=== PATIENT | female | born 1940 | race Caucasian/White ===

== ENCOUNTER 2018-01-22 17:16 | Inpatient (IN) | payer MEDICARE, MEDICAID ==
[~2018-01-22] VITALS: Ht 157.5 cm; Wt 61.2 kg
--- NOTE | 2018-01-22 17:30 | NUR ---
Pt.was seen by Joey Maldonado, family at bedside.
[2018-01-22] MEDS ORDERED: MEMA1CAP3 PO (17:32)
[2018-01-22] MEDS ORDERED: VENL150T PO (17:32)
[2018-01-22] MEDS ORDERED: CLON0.5T12 PO (17:33)
[2018-01-22] MEDS ORDERED: OLAN2.5T3 PO (17:33)
[2018-01-22] MEDS ORDERED: ALEN70TA45 PO (17:34)
[2018-01-22] MEDS ORDERED: LOSA50TA21 PO (17:34)
[2018-01-22] MEDS ORDERED: ATOR20TA PO (17:34)
[2018-01-22] MEDS ORDERED: CELE200C PO (17:34)
[2018-01-22] MEDS ORDERED: TRAM50TA2 PO (17:35)
[2018-01-22] MEDS ORDERED: ESZO3TAB27 PO (17:35)
[2018-01-22] MEDS ORDERED: SITA1TAB2 PO (17:36)
[2018-01-22] MEDS ORDERED: HYDR30CR77 RC (17:36)
[2018-01-22 17:40] LABS: BASOPHILS # (AUTO) 0.1 K/uL (0.0-8.0); BASOPHILS % (AUTO) 1.3 % (0.0-2.0); EOSINOPHILS # (AUTO) 0.1 K/uL (0.0-0.7); EOSINOPHILS % (AUTO) 1.4 % (0.0-7.0); HEMATOCRIT 36.8 % (31.2-41.9); HEMOGLOBIN 12.6 g/dL (10.9-14.3); LYMPHOCYTES # (AUTO) 1.4 K/uL (20.0-40.0); LYMPHOCYTES % (AUTO) 20.2 % (20.5-51.5); MEAN CORPUSCULAR HEMOGLOBIN 31.9 uug (24.7-32.8); MEAN CORPUSCULAR HGB CONC 34 g/dL (32.3-35.6); MEAN CORPUSCULAR VOLUME 93.5 fL (75.5-95.3); MONOCYTES # (AUTO) 0.5 K/uL (2.0-10.0); MONOCYTES % (AUTO) 7.1 % (0.0-11.0); NEUTROPHILS # (AUTO) 4.9 K/uL (1.8-8.9); PLATELET COUNT (AUTO) 232 K/uL (179-408); RED BLOOD CELL COUNT(AUTO) 3.94 MIL/uL (3.63-4.92)
[2018-01-22 17:48] LABS: CARBON DIOXIDE 30 mmol/L (21-32); CHLORIDE 105 mmol/L (98-107); CREATININE 1.1 mg/dL (0.6-1.3); GLUCOSE 137 mg/dL (74-106); POTASSIUM 4.1 mmol/L (3.5-5.1); UREA NITROGEN, BLOOD 24 mg/dL (7-18)
[2018-01-22 17:53] LABS: ALANINE AMINOTRANSFERASE 23 U/L (14-59); ALKALINE PHOSPHATASE 42 U/L (50-136); ASPARTATE AMINOTRANSFERASE 11 U/L (15-37); BILIRUBIN,DIRECT 0.1 mg/dL (0.0-0.2); BILIRUBIN,TOTAL 0.3 mg/dL (0.2-1.0); TOTAL PROTEIN, SERUM 6.8 g/dL (6.4-8.2)
[2018-01-22 17:55] LABS: ETHANOL < 3 MG/DL (0-0)
[2018-01-22 18:05] LABS: THYROID STIMULATING HORMONE 0.928 mIU/mL (0.358-3.740)
--- NOTE | 2018-01-22 18:52 | NUR ---
Pt. watching TV, doughter at bedside, no s/s of distress or pain noted.pt.been watching [employer]
[2018-01-22 19:09] LABS: *BILIRUBIN,URIN NEGATIVE (NEGATIVE); *BLOOD, URINE 1+ (NEGATIVE); *CLARITY,URINE CLEAR (CLEAR); *COLOR,URINE YELLOW (YELLOW); *KETONES,URINE NEGATIVE (NEGATIVE); *PROTEIN,URINE NEGATIVE (NEGATIVE); *UROBILINOGEN,URINE 0.2 E.U./dl (NORMAL); LEUKOCYTE ESTERASE ,URINE NEGATIVE (NEGATIVE); NITRITE, URINE NEGATIVE (NEGATIVE); PH,URINE 5.5 (5.0-8.0); UGLUCOSE NEGATIVE (NEGATIVE)
[2018-01-22 19:17] LABS: MUCUS,URINE MODERATE /LPF (0-FEW); SQUAMOUS EPITHELIAL CELL,UR FEW /HPF (NONE SEEN); WBC,URINE 0-3 /HPF (0-3)
[2018-01-22 19:18] LABS: *AMPHETAMINE, URINE NEGATIVE (NEGATIVE); *BARBITURATE, URINE NEGATIVE (NEGATIVE); *CANNABINOID, URINE NEGATIVE (NEGATIVE); *COCCAINE, URINE NEGATIVE (NEGATIVE); *OPIATE, URINE NEGATIVE (NEGATIVE); *PHENCYCLIDINE SCREEN,URINE NEGATIVE (NEGATIVE)
--- NOTE | 2018-01-22 19:51 | NUR ---
Pt. admitted to [facility], under care of Dr. COOPER Belongs List completed
[2018-01-22] MEDS ORDERED: MAGNESIUM HYDROXIDE 30 ML LIQUID UDC PO PRN (21:15)
[2018-01-22] MEDS ORDERED: MAG HYDROX/AL HYDROX/SIMETH 30 ML LIQUID UDC PO PRN (21:15)
[2018-01-22] MEDS ORDERED: LORAZEPAM 0.5 MG TABLET PO PRN (21:15)
[2018-01-22] MEDS ORDERED: ACETAMINOPHEN 650 MG SUPP.RECT RC PRN (21:15)
[2018-01-22] MEDS ORDERED: TEMAZEPAM 7.5 MG CAPSULE PO PRN (21:15)
[2018-01-22 22:06] VITALS: BP 116/64
[2018-01-23] MEDS ORDERED: ACETAMINOPHEN 325 MG TABLET PO PRN (02:00)
--- NOTE | 2018-01-23 02:02 | NUR ---
GPS/NSG Admitting Note: Patient is a 77 yr old Mosotho speaking female admitted to [facility] after she was placed on a [address] [facility] PMRT for Danger to Self. According to the hold family called 911 after patient's and daughter found a suicide note where she stated that she couldn't live anymore and was sorry. Patient was admitted to our unit from Emergency Room where she was medically cleared, arrived via gurney with daughter by her side. Patient admitted under the care of Dr. Whitley and Dr. Fatima. On admission process required Mosotho search strategist. patient was cooperative however visibly withdrawn with flat affect and low mood. Patient denied having a suicide plan or intent and was able to contract for safety however stated that she just wanted to go home. Annalee, patient's daughter was able to add with great difficulty, a vague description of the patient's previous attempt to jump off a roof and described her mother as someone who has struggled with depression for some time now. Patient's daughter also indicated that the patient is a poor historian and does not take her medication consistently. Patient has a medical history of Depression, Hypertension, hyperlipidemia, diabetes mellitus. Patient lives at home with her and is hoping to return home upon discharge. Patient wishes to be have a DNR code, which will be endorsed for follow up; to obtain an order from physician if daughter is unable to provide us with the required stated paperwork. Patient declined the flu vaccine at this time, daughter requested further intervention in the future for both the flu and pneumonia vaccine administration. Initial assessment findings include: Patient alert and oriented to name, place, time and situation. skin intact, upper and lower partial dentures that were placed in a container, labeled and kept at bedside. Patient requested to keep a watch, glasses and a book with her also at bedside. Otherwise belongings taken by daughter including medication. Patient is able to ambulate without difficulty, appears to have a steady gait. Will monitor Q15 minutes times 24 hours as well as initiate safety precautions. Patient requested prn for anxiety as well as for insomnia. Medications administered as ordered, nursing to follow up with outcome.
[2018-01-23 07:30] VITALS: BP 101/58
[2018-01-23] MEDS ORDERED: HYDROCORTISONE 2.5 % RECTAL CREAM 28.35 GM TUBE RC PRN (13:15)
[2018-01-23] MEDS ORDERED: INSULIN REGULAR, HUMAN 300 UNIT/3 ML VIAL SQ PRN (13:15)
[2018-01-23] MEDS ORDERED: DEXTROSE 50% 50 ML DISP.SYRIN IV PRN (13:15)
[2018-01-23 15:24] VITALS: BP 99/54
[2018-01-23] MEDS: BLOOD SUGAR DIAGNOSTIC 1 EACH STRIP VI SCH ×2 (16:07→20:01)
[2018-01-23] MEDS: MIRTAZAPINE 15 MG TABLET PO SCH (20:01)
[2018-01-23 20:20] VITALS: BP 108/50
--- NOTE | 2018-01-23 22:03 | NUR ---
GPS: Pt.is asleep at this time during rounds. In no form of distress noted. Fall precautions observed. Will continue to monitor.
[2018-01-24] MEDS: BLOOD SUGAR DIAGNOSTIC 1 EACH STRIP VI SCH ×4 (06:31→20:34)
[2018-01-24 07:30] VITALS: BP 132/64
[2018-01-24] MEDS: ATORVASTATIN 20 MG TABLET PO SCH (08:24)
[2018-01-24] MEDS: FLUOXETINE HCL 10 MG CAPSULE PO SCH (08:24)
[2018-01-24] MEDS: LOSARTAN POTASSIUM 50 MG TABLET PO SCH (08:24)
[2018-01-24] MEDS: CELECOXIB 200 MG CAPSULE PO SCH (08:25)
--- NOTE | 2018-01-24 15:30 | NUR ---
Initial Discharge Plan: Per patient, she would like to return home to live with . However, daughter, Annalee [[phone]], is interested in transferring pt. to [facility] ger[facility] psych unit. SW will continue collaborate with interdisciplinary team to ensure pt. receives a safe and adequate discharge.
[2018-01-24 16:54] VITALS: BP 118/56
[2018-01-24 20:21] VITALS: BP 109/55
[2018-01-24] MEDS: MIRTAZAPINE 15 MG TABLET PO SCH (20:28)
--- NOTE | 2018-01-25 06:12 | NUR ---
GPS: SLEPT 5 HRS THROUGH THE NIGHT. TOOK SHOWER THIS MORNING. NO AGITATION NOTED AT THIS TIME. REMAIN PLEASANT WITH NURSING CARE. CONTINUE MONITOR FOR SAFETY.
[2018-01-25] MEDS: BLOOD SUGAR DIAGNOSTIC 1 EACH STRIP VI SCH ×4 (06:38→20:07)
[2018-01-25 08:00] VITALS: BP 115/50
[2018-01-25] MEDS: CELECOXIB 200 MG CAPSULE PO SCH (09:12)
[2018-01-25] MEDS: ATORVASTATIN 20 MG TABLET PO SCH (09:12)
[2018-01-25] MEDS: FLUOXETINE HCL 10 MG CAPSULE PO SCH (09:12)
[2018-01-25] MEDS: LOSARTAN POTASSIUM 50 MG TABLET PO SCH (09:12)
--- NOTE | 2018-01-25 12:57 | NUR ---
Discharge Note: Patient will be discharged back to her home [[address] [place] [address]; ] where she lives with her . Transportation will be provided by patients daughter, Annalee [[phone]], at 3:30pm. Patient is alert and oriented x2-3 and denies SI/HI. Patient is aware and agreeable with discharge plan. Patient will follow-up outpatient with psychiatrist, Dr. Bond [[address], [place] [address]; ]. clay worker sent continuing care packet to psychiatrist office. Patient will follow-up with primary care physician, Dr. Estrada [[address] [place] [address]; ]. clay worker has sent continuing care packet to MD office. No appointments have been made with physicians at this time, but social services manager did encourage patient daughter to schedule follow-ups. clay worker offered home health to assist patient, however, daughter refused. clay worker has provided patient with mental health resources including [facility] , [facility] , and the National Suicide Prevention Lifeline . Addendum: 01/25/18 at 1503 by KARINA KEN Correction: clay worker called and speak with patient's outpatient psychiatrist, Dr. Bond [[phone]], who feels patient should not be discharged due to non-compliance with outpatient treatment including refusing to go to psychiatrist office and not taking antidepressant medication. Furthermore Dr. Bond wants patient to begin ECT treatment but feels she should be stabilized more in order to voluntarily agree to outpatient ECT. Patient also experiencing family stressor with 100 year old mother at home. Upon consultation with Dr. Bond, Dr. Whitley has agreed to postpone patient discharge to later this week in order for medication to begin working for patient. clay worker called and spoke to Annalee, patient daughter, informing her that discharge will no longer be taking place this today. per daughter, she wanted to take patient to [facility] ER for admittance to their tiffanie-psych unit. clay worker explained that patient may not receive bed there and that having her stay on unit here would be beneficial to allow medication to work. Patient daughter was in agreement with plan. clay worker used [email or web address] phone (reference #[id number]) to communicate information to patient. Patient was very upset at this information stating "you promised I would leave" and "I must go home". clay worker attempted to explain reasoning for staying longer, however, patient was adamant that she must leave. clay worker informed patient that psychiatrist would be putting patient on a 14 day hold and that discharge would be later in the week.
[2018-01-25 16:37] VITALS: BP 104/59
[2018-01-25 19:30] VITALS: BP 101/51
[2018-01-25] MEDS: MIRTAZAPINE 15 MG TABLET PO SCH (20:05)
[2018-01-26] MEDS ORDERED: ALENDRONATE SODIUM 70 MG TABLET PO SCH (06:30)
[2018-01-26] MEDS: BLOOD SUGAR DIAGNOSTIC 1 EACH STRIP VI SCH (06:58)
[2018-01-26 07:30] VITALS: BP 104/50
[2018-01-26] MEDS: LOSARTAN POTASSIUM 50 MG TABLET PO SCH (08:50)
[2018-01-26] MEDS: ATORVASTATIN 20 MG TABLET PO SCH (08:51)
[2018-01-26] MEDS: FLUOXETINE HCL 20 MG CAPSULE PO SCH (08:51)
[2018-01-26] MEDS: CELECOXIB 200 MG CAPSULE PO SCH (08:51)
[2018-01-26] MEDS ORDERED: FLUOXETINE HCL 10 MG CAPSULE PO SCH (09:00)
--- NOTE | 2018-01-26 15:01 | NUR ---
ACTIVITY GROUP NOTE: GOAL Patient will actively participate in the group activity of the day or relax in the activity room with fellow patients. INTERVENTION Foundation Relations Director invited patient to participate in a group activity consisting of filling out leaves of gratefulness or crossword puzzles and music held from 11-11:45 am in the activities room. RESPONSE Patient expressed disinterest in participating in activities or relaxing in the activities room with peers. Patient remained in their room resting during that time. PLAN Patient will be invited to attend the next group activity.
[2018-01-26 16:04] VITALS: BP 103/58
[2018-01-26] MEDS: MIRTAZAPINE 15 MG TABLET PO SCH (20:14)
[2018-01-26 20:20] VITALS: BP 107/54
[2018-01-26 20:22] VITALS: BP 107/54
[2018-01-27 07:30] VITALS: BP 110/61
[2018-01-27] MEDS: ATORVASTATIN 20 MG TABLET PO SCH (08:19)
[2018-01-27] MEDS: FLUOXETINE HCL 20 MG CAPSULE PO SCH (08:19)
[2018-01-27] MEDS: CELECOXIB 200 MG CAPSULE PO SCH (08:19)
[2018-01-27] MEDS: LOSARTAN POTASSIUM 50 MG TABLET PO SCH (08:20)
[2018-01-27 08:26] VITALS: BP 115/61
--- NOTE | 2018-01-27 08:32 | NUR ---
Updated Discharge Note: Patient will be discharged back to her home [[address] [place] [address]; ] where she lives with her . Transportation will be provided by patients daughter, Annalee [[phone]], at 10:00am. Patient is alert and oriented x2-3 and denies SI/HI. Patient is aware and agreeable with discharge plan. Patient will follow-up outpatient with psychiatrist, Dr. Bond [[address], [place] [address]; ]. textile worker sent continuing care packet to psychiatrist office. Patient will follow-up with primary care physician, Dr. Estrada [[address] [place] [address]; ]. textile worker has sent continuing care packet to MD office. No appointments have been made with physicians at this time, but renal social worker did encourage patient daughter to schedule follow-ups. textile worker offered home health to assist patient, however, daughter refused. textile worker has provided patient with mental health resources including [facility] Crisis Line , [facility] , and the National Suicide Prevention Lifeline .
--- NOTE | 2018-01-27 09:54 | NUR ---
Gps/Piano Stringer- Discharge planning in progress, daughter Annalee to transport patient to her home. Reviewed medications/prescription , diet, safety emphasized, follow up with Primary Medical Doctoe as recommended.Patient cooperative, pleasant, verbalized understanding of discharged instructions . Denies any plan to hurt self.All belongings returned back to patient, no complaints noted.
--- NOTE | 2018-01-27 10:31 | NUR ---
Gps/Ip Technology Transactions Attorney- Patient's daughter Annalee in to seed cone picker patient, reviewed discharged instructions, prescription faxed to their preferred Pharmacy at [phone] . Discharged Home accompanied by her daughter, no complaints noted.
--- NOTE | 2018-01-27 15:01 | NUR ---
Firearms Report: SW completed and submitted [employer] firearms report for 5150 DTS certification.
== END 2018-01-27 10:45 | disposition home or self-care (01) | DRG 885 ==
LOC: ER 17:18 → GPS 19:59
PROVIDERS: ADMIT Psychiatry & Neurology Psychiatry; ATTEND Nurse Practitioner Acute Care
DX: F33.2 Major depressive disorder, recurrent severe without psychotic features (principal); N17.0 Acute kidney failure with tubular necrosis; M81.0 Age-related osteoporosis without current pathological fracture; E11.9 Type 2 diabetes mellitus without complications; Z79.84 Long term (current) use of oral hypoglycemic drugs; I10 Essential (primary) hypertension; Z79.899 Other long term (current) drug therapy; Z91.19 Patient's noncompliance with other medical treatment and regimen; E78.5 Hyperlipidemia, unspecified
CPT/HCPCS: 36415; 71045; 80307; 84443; 85025; 93005; A4663; G0480; J1815; J8499